=== PATIENT | male | born 1950 | race Caucasian/White ===

== ENCOUNTER 2024-05-07 08:10 | Day surgery (SDC) | payer MEDICARE, OTHER, SELFPAY ==
[2024-04-30 08:32] VITALS: BMI 40.0
[2024-05-07] VITALS (12 sets, daily range): BP systolic 117–178; BP diastolic 60–92; PULSE 46–69; RESP 10–20; TEMP 36–36.7; O2SAT 94–100; BMI 40.0
--- NOTE | 2024-05-07 | DI.RAD.S_ITS ---
PROCEDURE: XR PELVIS 1-2V INDICATIONS: INTEROP RIGHT HIP TECHNIQUE: Intra-operative view of the pelvis and hip acquired. COMPARISON: None. FINDINGS: Bones: A single intraoperative film of the right hip demonstrates that a total right hip arthroplasty is being performed with no radiographic evidence of complications. IMPRESSION: Unremarkable intraoperative film during total right hip arthroplasty. Dictated by: Flaco Neal M.D. on 05/07/2024 at 15:23 Approved by: Flaco Neal M.D. on 05/07/2024 at 15:24
--- NOTE | 2024-05-07 06:00 | DI.RAD.S_ITS ---
PROCEDURE: XR HIP W PEL IF DONE RT 2V INDICATIONS: CHILANGO TECHNIQUE: AP pelvis and lateral view of the hip acquired. COMPARISON: None. FINDINGS: Bones: Patient is status post right hip arthroplasty, with hardware components in expected positions. The hip joint appears congruent. The visualized bony structures appear intact. Soft tissues: Overlying postoperative changes are noted. No suspicious soft tissue densities. IMPRESSION: Expected post-operative appearance of a hip arthroplasty. Dictated by: Cosme Tolbert M.D. on 05/07/2024 at 16:26 Approved by: Cosme Tolbert M.D. on 05/07/2024 at 16:27
[2024-05-07] MEDS: VANCOMYCIN 1,000 MG/200 ML PIGGYBACK 200 MG IV (09:19)
[2024-05-07] MEDS: LACTATED RINGERS 1,000 ML 42 ML IV (09:26)
--- NOTE | 2024-05-07 12:12 | PM.PREOP ---
Pre-operative Note Interval Note History & Physical reviewed/Exam performed by Physician: Yes Changes to H&P: No
--- NOTE | 2024-05-07 12:54 | P.OP_ITS ---
Operative Date/Time/Diagnoses Date of procedure: 05/07/24 Time of procedure: 13:00 Pre-op diagnosis: Right hip OA Post-op diagnosis: same Procedure & Clinicians Procedure: Right total hip arthroplasty posterior approach Same procedure as scheduled: Yes Indications: The patient has had progressively worsening right hip pain with radiographic changes consistent with arthritis. Non-operative management has failed and the patient has requested total hip replacement. The risks, benefits and alternatives to surgery were discussed with the patient prior to proceeding. Risks discussed included, but were not limited to, failure to relieve pain, leg length discrepancy, dislocation, stiffness, infection, nerve damage, deep venous thrombosis, pulmonary embolism, stroke, coma, heart attack, permanent paralysis and , as well as the potential need for eventual revision of the prosthetic. Surgeon: Ann-Marie Tai Furniture Assembler: Carlos Mishra Anesthesia Type: General and Spinal Operative Notes Findings: Severe right hip OA, adequate stability, adequate bone Closure Type: primary Specimen(s): none sent Prosthetic devices, grafts, tissues, transplants, or devices: Tai and nephew 58 R3, 20 degree lipped poly liner,one 6.5 mm screw, polar stem standard offset size 4, 40 by +0 cobalt chrome head Estimated Blood Loss (mL): 250 Blood products transfused: none Procedure in detail: The patient was seen in the pre-operative area, where the patient identified the right hip as the operative site and this was marked with my initials. The patient received pre-operative antibiotics and was taken to the operating room and placed on the operative table in the left lateral decubitus position after satisfactory anesthesia. A night time nanny out was performed. The right leg was prepared from the ankle to the iliac crest with ChloroPrep in the usual fashion and draped through sterile drapes. A PA was used during the procedure and was essential for intraoperative retraction safe implantation of the components. The hip was approached through an approximately 20 cm incision centered over the greater trochanter and curving gently posteriorly as it went proximally. This was carried sharply to the fascia jenny, which was divided and retracted with a self retaining retractor. The trochanteric bursa was excised with care being taken to avoid the sciatic nerve, which was identified and protected throughout the case. The short external rotators were incised and the capsulomuscular flap was raised and tagged for later repair. The hip was dislocated, and a femoral neck osteotomy performed approximately 15 mm above the lesser trochanter. Retractors were placed around the femur. The canal was opened with a box cutting osteotome, followed by a T handled reamer and a lateralizing reamer. The chili pepper broach was then used, followed by sequential broaching until there was good stability of the broach in the femur. Retractors were placed to expose the acetabulum. The labrum and central soft tissues were removed. Reaming was performed initially going up in 2 mm increments, then 1 mm increments until good bite was obtained with an odd sized reamer. The cup 1 mm larger than the last reamer was then inserted using the appropriate anteversion guides. It was further stabilized with a screw. A trial neutral liner was placed. The broach was placed in the canal. A trial head and neck were then placed and the hip relocated and checked for leg length and stability. An intraoperative film confirmed the component position and no evidence of fracture. The patient was stable in the position of sleep, of squatting, and could be put through a range of motion with 45 degrees internal rotation without dislocation. With a neutral poly liner and a standard offset his x-rays showed good position of the components but there was less than optimum high flexion stability. There was no specific significant areas of impingement but a small amount of additional bone was resected off of the anterior aspect of the acetabular rim. In addition we did a trial with a lateralized liner which really did not provided additional significant stability and we did a trial with a lip liner placing the lip of the liner more inferior posterior inferior. The lip liner provided additional stability. At 90 degrees flexion, internal rotation to 70? was possible before dislocation. This was felt to be satisfactory and the appropriate components were opened, and the trials were removed. The acetabular liner was impacted into position. The final stem was then impacted into the prepared femoral canal. A brief Betadine soak was performed while trialing with head options. The hip was meticulously irrigated with normal saline. Finally the femoral head was impacted onto the stem. The acetabulum was cleared of all material and the hip relocated one final time. The capsulomuscular flap was then repaired to the greater trochanter though an awl hole using the tag sutures. The short external rotators were repaired with a nonabsorbable suture. The fascia jenny was closed with Vicryl. The subcutaneous layer was closed with barbed sutures and SteriStrips. An Aquacel Ag dressing was applied and the patient was taken to recovery having tolerated the procedure well. Complications: none Post-operative Condition: stable Disposition: Acute Care Plan for aftercare: The patient will be maintained on a standard total hip replacement protocol with weight bearing as tolerated and posterior hip precautions. The patient will receive Aspirin and sequential compression devices for DVT prophylaxis. The patient will be discharged home when safe for the home environment.
[2024-05-07] MEDS: TRANEXAMIC ACID 1,000 MG VIAL 1000 MG INJ ×2 (13:23→15:07)
[2024-05-07] MEDS: CEFAZOLIN 2 GM/100 ML PREMIX 100 ML IV (13:40)
[2024-05-07] MEDS: BUPIVACAINE LIPOSOME 266 MG/20 ML VIAL INJ (13:44)
[2024-05-07] MEDS: BUPIVACAINE 0.25% (PF) 60 ML, EPINEPHrine 0.3 MG INJ (13:45)
--- NOTE | 2024-05-07 13:50 | SUR.OPER ---
Lateral on padded OR bed. Gel axillary roll. Arms secured on padded armboard with pillow supporting top arm. Padded hip positioner braces x4 - anterior and posterior chest and pelvis. Additional gel pad used anterior pelvis. Gel pad under bottom leg from knee to foot and secured with tape over sheet.
[2024-05-07] MEDS: ACETAMINOPHEN 325 MG TABLET 975 MG PO (16:01)
[2024-05-07] MEDS: BENZOCAINE/MENTHOL 1 LOZ PKT 1 EACH PO (16:03)
--- NOTE | 2024-05-07 16:30 | SUR.PHASEI ---
Pt transferred to 215 with 2 bags including CPAP.
[2024-05-07] MEDS: LACTATED RINGERS 1,000 ML 100 ML IV (17:21)
[2024-05-07] MEDS: OXYCODONE IR 5 MG TABLET PO ×3 (18:26→23:03)
[2024-05-07] MEDS: ATORVASTATIN 20 MG TABLET 80 MG PO (20:55)
[2024-05-07] MEDS: METOPROLOL IR 25 MG TABLET 12.5 MG PO (20:55)
[2024-05-07] MEDS: DOCUSATE 100 MG CAPSULE PO (20:55)
[2024-05-07] MEDS: CEFAZOLIN VIAL 3 GM in SODIUM CHLORIDE 0.9% 100 ML IV (21:31)
[2024-05-08] VITALS: BP 130/75; PULSE 73; RESP 16; TEMP 37.4; O2SAT 94
--- NOTE | 2024-05-08 00:25 | PC.NURSE ---
pt resting in bed comfortably. a&o x4. vss. respirations even and unlabored on room air with O2 sats of 96%. lungs cta. abdomen soft and nontender with active bowel sounds in all 4 quads. reported feeling some slight nausea earlier, but has since subsided and does not want any anti-nausea medication. right hip surgical incision with WONG dressing CDI. green light flashing. cms intact with good pedal pulses. complaining of 5/10 pain in right hip. ice packs applied and prn oxycodone 5mg given. uses urinal independently at the bedside. urine strong-smelling and dark jose l in color. denies any burning and urinary urgency/frequency. iv site in right hand asymptomatic and intact. LR running at 100 mls/hr. scds applied. bed in lowest position with call light within reach.
[2024-05-08] MEDS: OXYCODONE IR 5 MG TABLET PO ×4 (03:06→17:39)
[2024-05-08 04:00] VITALS: BP 121/74; PULSE 71; RESP 20; TEMP 37.4; O2SAT 97
[2024-05-08] MEDS: CEFAZOLIN VIAL 3 GM in SODIUM CHLORIDE 0.9% 100 ML IV (04:23)
[2024-05-08 05:26] LABS: Hematocrit 45.6 % (41-53); Hemoglobin 15.6 g/dL (13.5-17.5)
--- NOTE | 2024-05-08 06:50 | P.DS_ITS ---
History of Present Illness History of Present Illness Date Patient Seen: 05/08/24 Time Patient Seen: 06:50 Chief complaint: Right Total Hip Arthroplasty 05/07 Narrative: Operative Date/Time/Diagnoses Date of procedure: 05/07/24 Time of procedure: 13:00 Pre-op diagnosis: Right hip OA Post-op diagnosis: same Procedure & Clinicians Procedure: Right total hip arthroplasty posterior approach Same procedure as scheduled: Yes Indications: The patient has had progressively worsening right hip pain with radiographic changes consistent with arthritis. Non-operative management has failed and the patient has requested total hip replacement. The risks, benefits and alternatives to surgery were discussed with the patient prior to proceeding. Risks discussed included, but were not limited to, failure to relieve pain, leg length discrepancy, dislocation, stiffness, infection, nerve damage, deep venous thrombosis, pulmonary embolism, stroke, coma, heart attack, permanent paralysis and , as well as the potential need for eventual revision of the prosthetic. Surgeon: Ann-Marie Tai Product Management Analyst: Carlos Mishra Anesthesia Type: General and Spinal Operative Notes Findings: Severe right hip OA, adequate stability, adequate bone Closure Type: primary Specimen(s): none sent Prosthetic devices, grafts, tissues, transplants, or devices: Tai and nephew 58 R3, 20 degree lipped poly liner,one 6.5 mm screw, polar stem standard offset size 4, 40 by +0 cobalt chrome head Estimated Blood Loss (mL): 250 Blood products transfused: none Discharge Providers Provider Discharge Date: 05/08/24 Primary care physician: Rogers Fraser Consults: 05/07/24 06:00 Consult to Anesthesiology Routine Comment: Consulting Provider: Anesthesiologist Reason for consultation: Regional block for post operative pain control Has provider been notified: No 05/07/24 16:29 Consult to Discharge Planning Routine Comment: Consult to Occupational Therapy Evaluate & Treat Comment: Physician Instructions: Evaluate and treat Consult to Physical Therapy Evaluate & Treat Comment: Physician Instructions: post op CHILANGO protocol 05/07/24 17:15 Consult to Dietitian, Adult Routine Comment: Reason For Exam: intended weight loss for surgery Discharge provider: Aishwarya Shi PA-C Summary Hospital Course Discharge Diagnosis: Right hip osteoarthritis, s/p right total hip arthroplasty Hospital Course: Mr Castro's hospital course was unremarkable. On the morning of POD# 1, he was uncomfortable but wanted to go home. He was eating and voiding without difficulty and his pain was well-controlled with oral medication. he had not yet been OOB. Exam Vital Signs (past 8 hours): - 05/08/24 00:00 05/08/24 04:00 Temperature 99.3 F 99.4 F Pulse Rate 73 71 Respiratory Rate 16 20 Blood Pressure 130/75 121/74 Pulse Oximetry 94 97 Oxygen Flow Rate 0 0 Oxygen Delivery Method Room Air Oxygen Flow Rate 0 Narrative Exam Narrative: 3/5 hip flexors, quadriceps, hamstrings; 5/5 PF, DF, EHL on right. Sensation to light touch intact throughout RLE, calf soft and compressible. WONG dressing functioning. Objective Labs 05/08/24 04:35 Labs: Laboratory Results - last 24 hr 05/08/24 04:35 Hgb 15.6 Hct 45.6 PFSH Medical History (Updated 04/30/24 @ 09:27 by Sana Goetz RN) CAD (coronary artery disease) CAITLYN on CPAP Neuropathy Cancer of left kidney (2006) BMI 40.0-44.9, adult (04/2024) HTN (hypertension) Surgical History (Updated 04/30/24 @ 09:27 by Sana Goetz RN) History of tonsillectomy History of repair of hiatal hernia History of left nephrectomy (2006) Hx of heart artery stent Social History household members: spouse Smoking Status: Former smoker alcohol intake: current Discharge Assessment & Plan Assessment and Plan Assessment: Right hip osteoarthritis, s/p right total hip arthroplasty Plan of Treatment: Discharge home after PT, ASA 81mg BID x 6 weeks for VTE prophylaxis, outpt PT, f/u in office in 2 weeks as scheduled, multimodal pain control. Discharge Plan Discharge Plan Patient Disposition: Home Provider Discharge Comment: Pt has postop meds at home. Increase ASA to BID. Discharge orders & Medications Discharge Orders: Discharge (Order); Ordered 05/08/24 Ordered By: Aishwarya Shi Prescriptions: Continued atorvastatin 80 mg tablet 80 mg PO QPM allopurinol 100 mg tablet 100 mg PO QAM aspirin 81 mg Tablet,Delayed Release (Dr/Ec) 81 mg PO DAILY lisinopril 5 mg tablet 5 mg DAILY metoprolol tartrate 25 mg tablet 12.5 mg PO BID acetaminophen [Tylenol Extra Strength] 500 mg Tablet 1,000 mg PO BID Follow up/Referrals: Rogers Fraser [Primary Care Provider] - Ann-Marie Tai MD [Physician] - 05/17/24 9:00 am Diet/Activity/Treatments Diet: Diet as Tolerated Activity: Weightbearing as tolerated. Posterior hip precautions. Cold/Heat Therapy: Ice to hip as needed for pain. Skin/Wound/Dressing Care Report to your healthcare provider any signs of infection, such as:: chills, fever, night sweats, unusual drainage and unusual redness Dressing: May shower. Leave dressing in place until follow up in office. Batteries will in 5-7 days, at which point you can cut off the battery pack and dispose of it, but keep the dressing on. No bathing or otherwise soaking incision. Call the office if the dressing becomes saturated inside. Visit Report/Discharge Packet Instructions: DI for Hip Replacement, DI for Prescription Opioid Use Stand Alone Forms: Patient Portal/API, Surgery Discharge Discharge Data Primary Care Provider: Rogers Fraser Attending Provider: Ann-Marie Tai Quality VTE Deep Vein Thrombosis/Pulmonary Embolism Present on Admission: No
[2024-05-08 08:00] VITALS: BP 121/68; PULSE 63; RESP 15; TEMP 37.5; O2SAT 98
[2024-05-08 08:26] VITALS: BP 121/68; PULSE 63
[2024-05-08] MEDS: DOCUSATE 100 MG CAPSULE PO ×2 (08:26→20:38)
[2024-05-08] MEDS: lisinopriL 5 MG TABLET PO (08:26)
[2024-05-08] MEDS: METOPROLOL IR 25 MG TABLET 12.5 MG PO ×2 (08:26→20:40)
[2024-05-08] MEDS: ACETAMINOPHEN 325 MG TABLET 650 MG PO ×2 (08:27→17:39)
[2024-05-08] MEDS: allopurinoL 100 MG TABLET PO (08:28)
--- NOTE | 2024-05-08 09:25 | PT.IIE ---
Current Diagnoses Unilateral primary osteoarthritis, right hip (05/07/24) Surgery Performed Operation Date: 05/07/24 10:45 Actual Procedures p Total Hip Arthroplasty(Right) - Ann-Marie Tai MD Surgical History (Last Updated 04/30/24 @ 09:27 by Sana Goetz, RN) History of left nephrectomy (2006) History of repair of hiatal hernia History of tonsillectomy Hx of heart artery stent Medical History (Last Updated 04/30/24 @ 09:27 by Sana Goetz, RN) BMI 40.0-44.9, adult (04/2024) CAD (coronary artery disease) Cancer of left kidney (2006) HTN (hypertension) Neuropathy CAITLYN on CPAP Physical Therapy Inpatient Evaluation/Re-Eval M1 PT/OT-IP Prior Functional Status Start: 05/08/24 12:42 Freq: NEEDED Status: Active Protocol: Document 05/08/24 09:25 AB (Rec: 05/08/24 12:58 AB [id number]) Medical Review Prior Functional Status Medical History Reviewed Yes Communication able to make needs known Mobility and Gait pt staed that he was independent with all mobilities and ambulation without AD but occasionally uses a SPC Social History Household Members spouse Living Arrangements House Number of Floors (Floors) Two Floors Number of Stairs To Enter/Railing? pt stays on main level of the house has 6 steps wide bilateral rails to enter but can only hold on to 1 rail at a time Home Environment High Toilet,Walk in Shower Home Equipment Front Wheel Walker,Straight Cane,Shower Seat with Backrest ,Hand Held Shower Additional Social History Comment pt has a toilet safety frame M2 PT-IP Current Condition Start: 05/08/24 12:42 Freq: NEEDED Status: Active Protocol: Document 05/08/24 09:25 AB (Rec: 05/08/24 12:58 AB [id number]) Physical Therapy Current Condition Current Condition Evaluation Date 05/08/24 Treatment Diagnosis s/p R CHILANGO posterior; difficulty in walking Onset Date 05/07/24 M3 PT-IP Subjective Start: 05/08/24 12:42 Freq: NEEDED Status: Active Protocol: Document 05/08/24 09:25 AB (Rec: 05/08/24 12:58 AB [id number]) Subjective Physical Therapy Visit Type Type Initial Evaluation Visit Start Time 09:25 Visit Stop Time 10:25 Number of ANDROID SOFTWARE ENGINEER Visits 0 Physical Therapy Visit Comments Patient Comments agreeable to do PT Therapy Pain Assessment Pain When Pain Assessed At Rest Pain Present Pain Present Pain Reported Location right hip Intensity 4 Scale Used Numeric (0 - 10) Pain Management Techniques Apply Cold,Distraction, Modification of Treatment,Re- positioning,Timing of Activity with Medications M4 PT-IP Mobility and Gait Start: 05/08/24 12:42 Freq: NEEDED Status: Active Protocol: Document 05/08/24 09:25 AB (Rec: 05/08/24 12:58 AB [id number]) PT-Bed Mobility Assessment Supine to Sit Supine to Sit Maximum Assistance,1 Person Assistance,2 Person Assistance PT-Transfer Assessment Sit to and From Stand Sit to and from Stand Maximum Assistance,1 Person Assistance,Use of Upper Extremities Equipment Transfer Assistive Device Gait Belt,Front Wheeled Walker Orthotic/Prosthetic Devices or Brace: No Transfers Transfer Destination Chair Transfer Technique ambulated Transfer Ability Level of Assist Moderate Assistance,1 Person Assistance,Use of Upper Extremities Comments Mobility Comments pt supine in bed and agreeable to do PT. obtained PLOF and home setup from pt. post-op folder provided and reviewed contents. educated pt on R hip posterior precautions. spouse arrived and also educated on pt's posterior hip precautions. BP in supine: 121/75. pt completed supine to sit max A x 1-2 and max cues. pt needed 3 attempts to be able to sit up. max A for scooting to EOB. BP checked: 114/83. pt sat for a ~ 2 more minutes and BP rechecked: 116 /69. pt completed sit to stand max A and max cues for precautions. ambulated ~ 10 ft using fWW mod to max A and max cues for R quads activation. pt c/o feeling lightheadedness. sat on chair . BP checked: 99/59. pt rested and BP rechecked: 114/ 55. positioned pt on the chair. call light and table placed within reach. informed pt and spouse regarding pt's mobility level and may need to do caregiver training but at this time, pt is not ready for cargiver training due to decrease in BP during activity. nurse aware . Gait Assessment Gait Gait Assistance Required: Moderate Assistance,Maximum Assistance Distance (Feet) 10 Able to Maintain Weight Bearing Status Yes During Gait Assistive Devices Assistive Device Gait Belt,Front Wheeled Walker Orthotic/Prosthetic Devices or Brace: No Gait Deviations General Gait Pattern Antalgic,Decreased Stride Length,Decreased Feet Clearance Factors Limiting Gait Function Factors Limiting Gait Function Decreased Activity Tolerance, Decreased Strength,Limited Range of Motion,Pain,Poor Balance,Poor Safety Awareness PT-Balance Assessment Sitting Balance and Reactions Static Sitting Balance Ability Normal Dynamic Sitting Balance Ability Good Standing Balance and Reactions Static Standing Balance Ability Poor Dynamic Standing Balance Ability Poor Device Used FWW M5 PT-IP Objective Assessments Start: 05/08/24 12:42 Freq: NEEDED Status: Active Protocol: Document 05/08/24 09:25 AB (Rec: 05/08/24 12:58 AB [id number]) Orientation Orientation/Cognition Level of Alertness Alert Orientation Name,Situation Language Function Ability No Deficits Noted Safety Awareness Decreased Safety Awareness Memory Description Short Term Impaired Gross Range of Motion Lower Extremity ROM Assessment Within Functional Limits Strength Lower Extremity Strength Assessment Right Impaired Hip 3-/5 Knee 3+/5 Coordination Assessment Gross Coordination Gross Coordination WNL Sensation Assessment Sensation Gross Sensation WNL Muscle Tone Muscle Tone WNL Yes M6 PT-IP Treatment Start: 05/08/24 12:42 Freq: NEEDED Status: Active Protocol: Document 05/08/24 09:25 AB (Rec: 05/08/24 12:58 AB [id number]) Physical Therapy Treatment Exercises Exercises Heel Slides Education Education Provided Precautions,Weight Bearing Status,Post-Op Packet,Safety M7 PT-IP Assessment and Plan Start: 05/08/24 12:42 Freq: NEEDED Status: Active Protocol: Document 05/08/24 09:25 AB (Rec: 05/08/24 12:58 AB [id number]) PT Summary Assessment and Plan Potential Rehabilitation Potential Fair Status of Condition at Evaluation Evolving Summary Impairments Pain,ROM,Strength,Balance, Coordination,Sensation,Tone, Cognition,Bed Mobility, Transfers,Gait,Activity Tolerance Assessment Summary pt is a 73 y/o M s/p R CHILANGO posterior approach POD 1. pt with R hip posterior precautions and is WBAT. pt requiring max A with all mobilities and max cues for safety. pt lives with spouse and caregiver training will be conducted when appropriate. d/c plan depending on progress but at this time, pt may require SNF rehab. Goals Bed Mobility Goal Minimal Assistance Transfer Goal Minimal Assistance,Front Wheeled Walker Gait Goal Minimal Assistance,Front Wheel Walker Gait Distance 75 Other Goals improve bed mobility, transfers, ambulation using FWW ~ 150 ft SBA up/down 6 steps 1 rail + SPC SBA Days to Meet Goals 10 Frequency of Treatment Frequency Of Treatment Twice a Day Treatment Plan Physical Therapy Treatment Plan Bed Mobility Training,Transfer Training,Gait Training, Therapeutic Exercise,Balance Retraining,Post Op Education, Discharge Planning,Hot or Cold Pack,Neuromuscular Re-ed, Coordination Retraining,Manual Therapy Precautions Posterior Hip Precautions No Hip Flexion > 90 degrees Weight Bearing Status Weight Bearing Status Weight Bear as Tolerated Allowed Weight Bearing Amount (enter % RLE WBAT or #) (%) Recommendations To Nursing Amount of Assist Needed 2 Person Assist Discharge Recommendations PT Discharge Recommendations Home with 30/01 Assist Available,Home Health,SNF Rehab,Home vs SNF Transportation Needs at Discharge Private Vehicle,Wheelchair/ Cabulance
--- NOTE | 2024-05-08 10:58 | CM.DANOTE ---
Initial DCP Assessment Visit Note Reviewed EMR and team rounds for status updates. Met with pt and spouse at bedside to introduce self and role, pt was found to be resting in the recliner, alert/oriented, and able to discuss his plan/preference for home d/c. Pt resides modified independently with the use of a cane in his own home w/spouse in Monday. Spouse will transport once he's medically stable for d/c, anticipated for 05/09/24. Payor: Medicare Attending: Dr. Ann-Marie Tai Pt is a 73 year-old M post-op day 1 from a R-total hip arthroplasty surgery. He has a hx of worsening R-hip pain consistent with arthritis, and the pain has become limiting in his ability to do his ADL's. Conservative efforts have not had lasting benefits, including a cortisone injection on 12/01/23, which only helped reduce the pain for about 4-weeks. 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 He's also been working at losing weight, and has been able to bring his BMI down to 40 so far. Today in getting out of bed for the first time with PT, he became orthostatic and was not able to complete stair training. Plan is home tomorrow if he is able to meet his d/c milestones with PT, and has no medical issues preventing his discharge. Discharge Planning/Care Management Advanced directive, confirm from FAMILY Start: 05/07/24 17:16 Freq: Q24H Status: Active Protocol: Document 05/07/24 23:59 BR (Rec: 05/07/24 23:59 BR [id number]) Advance Directive, confirm on record Time 23:59 Person contacted Pt Copy received No CM Discharge Assessment Start: 05/08/24 10:55 Freq: Status: Active Protocol: Document 05/08/24 10:56 DPL (Rec: 05/08/24 10:58 DPL [id number]) Discharge Planning Assessment Assigned Stull Hewer DAIJA Gomez Advance Directives? Yes Advance Directives on File No History Provided By Patient,Significant Other, Medical Record Has Patient been admitted in last 30 No days? Prior Living Arrangements House Household Members spouse Type of transporation used prior to Drives own vehicle admit Independent with ADL's No: modified independent w/use of a cane. Is patient alert and oriented? Yes Caregiver for Another No DME Already Rented / Owned FWW / Walker,Cane Patient/Family Preference OP PT Therapy Discharge Plan Home Community Services Physical Therapy Transportation Arrangement Spouse Referrals Initiated None needed Whiteboard Updated in Patient Room with Yes name and ext. # of Stull Hewer Review Status In Process Please Provide Date Initial DC 05/08/24 Assessment Was Performed Pre-Anesthesia Assessment Start: 04/30/24 08:32 Freq: Status: Active Protocol: Document 04/30/24 08:32 LB (Rec: 04/30/24 09:23 LB [id number]) Pre-Anesthesia Assessment PAC Comment 04/30/24 Phone assessment. Preferred Name Maldonado Patient Information Reviewed Via Phone Assessment Assessment Completed With Patient Diagnostic Results BMP/CMP,CBC,EKG Comment 02/28/24 outside results Primary Care Provider Rogers Fraser Specialist Seen Orthopedist Primary Language Icelandic Preferred Language Icelandic Hand Cigar Making Supervisor Required No Height 187.96 cm Weight 141.521 kg Body Mass Index (BMI) 40.0 Hearing Ability Normal Visual Assist Glasses Dentition Type Teeth, Natural Present Barriers to Learning None Other Aids No Hx Anesthesia Reactions No Hx Family Anesthesia Reaction No Hx Malignant Hyperthermia No Hx Blood Transfusions No Anesthesia Review Requested No Exercise Physiologist No alcohol intake current alcohol intake frequency a few times a month Smoking Status Former smoker how long ago did patient quit smoking quit 35 years ago. Substance Use Type does not use Pain Present Pain Reported Comment right hip. Musculoskeletal Symptoms Difficulty Walking,Joint Pain, Numbness,Radiating Pain into Limb,Tingling History of Falling (Recent or History of No ) Patient is completely paralyzed or No completely immobile Prosthesis or Orthotic Device Cane,Front Wheel Walker Mental Status Oriented to own ability Comment Will bring walker. Is patient on oxygen? No Does patient have FISHER/SOB No Hx Sleep Apnea Yes CPAP/BIPAP use prescribed and used routinely Will Bring CPAP/BIPAP DOS Yes Currently Taking a Beta Belinda Yes: Metoprolol 12.5mg BID Can You Climb a Flight of Stairs Without Yes SOB Hx Chest Pain No Hx SOB No Hx Syncope or Dizziness No Anti-Coagulant Therapy Yes: Aspirin 81mg daily - advised to hold 1 week preop by surgeon. Has a Marble Cutter Operator Yes Cardiac Testing No Hx Pacemaker/ICD No Cardiac Clearance Received Not Applicable Bladder Pattern Frequency,Nocturia Urinary Catheter Present No Hx Urinary Self Catheterization No Diabetes No HgbA1C 5.5 Date 02/28/24 Hx Drug Resistant Organism No Presence of External or Internal Medical Yes: Cardiac stent, hernia Devices mesh. Have you had any close contact with No someone diagnosed with COVID-19? Are you experiencing any of these No symptoms symptoms? Marital Status Lives With spouse Current Living Arrangements House Number of Floors (Floors) Two Floors Number of Stairs To Enter/Railing? 5 stairs with railing to enter , living on main floor. Support System Spouse Does the Patient Have Assistance After Yes Surgery Patient Discharge Plan Description Return Home Additional comment advised same day surgery. Feels Safe in Current Environment Yes Do you have thoughts of harming yourself None or others? Do You Have Any Spiritual Beliefs That No May Affect Your HC Choices? Do You Have Any Cultural Practices That No May Affect Your HC Choices? Emergency Contact Name Jessica Tai - Emergency Contact Advance Directives? Yes Advance Directives on File No Requested Patient Bring Advanced Yes Directives DOS PAC Instructions Assistance for 24 hours post- op,Bring CPAP/BIPAP,Durable medical equipment,Medications to take/avoid,Nasal antibiotic ,No ETOH/petroleum product on skin DOS,NPO,Post-op transportation,Pre-surgical wash,Sensory aids,Sturdy shoes /comfortable clothes,Do not bring valuables and remove jewelry
--- NOTE | 2024-05-08 11:43 | OT.IP.EVAL ---
Current Diagnoses Unilateral primary osteoarthritis, right hip (05/07/24) Surgery Performed Operation Date: 05/07/24 10:45 Actual Procedures p Total Hip Arthroplasty(Right) - Ann-Marie Tai MD Past Medical History (Last Updated 04/30/24 @ 09:27 by Sana Goetz, RN) BMI 40.0-44.9, adult (04/2024) CAD (coronary artery disease) Cancer of left kidney (2006) HTN (hypertension) Neuropathy CIATLYN on CPAP Surgical History (Last Updated 04/30/24 @ 09:27 by Sana Goetz, RN) History of left nephrectomy (2006) History of repair of hiatal hernia History of tonsillectomy Hx of heart artery stent Occupational Therapy Inpatient Evaluation/Re-Eval M2 OT-IP Current Condition Start: 05/08/24 12:37 Freq: Status: Active Protocol: Document 05/08/24 12:37 [facility] (Rec: 05/08/24 12:55 [facility] [id number]) Occupational Therapy Current Condition Current Condition Evaluation Date 05/08/24 Treatment Diagnosis S/P R CHILANGO posterior approach Diagnosis Onset Date 05/07/24 Post Operative Precautions Posterior Hip Precautions No Hip Flexion > 90 degrees,No Hip Internal Rotation,No Hip Adduction M3 OT- IP Subjective and Pain Start: 05/08/24 12:37 Freq: Status: Active Protocol: Document 05/08/24 12:37 [facility] (Rec: 05/08/24 12:55 [facility] [id number]) OT- Subjective Occupational Therapy Visit Type Type Initial Evaluation Visit Start Time 11:10 Visit Stop Time 11:43 Occupational Therapy Visit Comments Patient Comments Pt agreed to work with OT and pt's in the room. Patient/Caregiver Goals TO go home. OT Pain Assessment Pain When Pain Assessed At Rest Pain Present Pain Present Pain Reported Location right hip Intensity 3 Scale Used Numeric (0 - 10) M4 OT- IP ADL's Start: 05/08/24 12:37 Freq: Status: Active Protocol: Document 05/08/24 12:37 [facility] (Rec: 05/08/24 12:55 [facility] [id number]) OT MMJ-Tdow-Oplsena General Evaluation Self-Feeding Ability Independent OT ADL-Grooming General Evaluation Grooming Ability Standby Assistance Areas Needing Assistance Retrieving/Set-up of Grooming Items Comments OT Grooming Comments While seated. OT ADL-Oral Care General Eval Oral Care Ability Independent Comments Oral Care Comments While seated. OT ADL-Dressing General Eval Lower Body Dressing Ability Minimal Assistance Areas Needing Assistance Socks Assistive Devices Dressing Assistive Devices Snuff Packing Machine Operator,Sock Aid Comments OT Dressing Comments Able to practice use of cold mill supervisor and sock aid for LB dressing needs. Educated to dress the RLE first and take out last. OT ADL-Toileting Comments OT Toileting Comments Spoke out use of toilet paper aid, wipes and urinal. In addition standing to wipe to best follow his hip precautions. OT ADL-Bathing Comments OT Bathing Comments Pt states will just sponge off at home. Suggested to use the FWW to help get into the shower with assist and to be sure the shower chair is high even for the pt to use. M5 OT- IP IADL's Start: 05/08/24 12:37 Freq: Status: Active Protocol: Document 05/08/24 12:37 [facility] (Rec: 05/08/24 12:55 [facility] [id number]) OT-Instrumental Activities of Daily Living Home Safety Awareness Awareness of Need for Assistance at Home Good Awareness Ability to Problem Solve Emergency Able to Problem Solve Situations Home Safety Comments Pt's to be home to assist pt. Medication Management Medication Management No Deficits Identified Money Management Money Management No Deficits Identified Meal Preparation Meal Preparation Caregiver Provides Assist Electronic Calibration Technician Electronic Calibration Technician Caregiver Provides Assist M6 OT- IP Functional Cognition Start: 05/08/24 12:37 Freq: Status: Active Protocol: Document 05/08/24 12:37 [facility] (Rec: 05/08/24 12:55 [facility] [id number]) Cognitive Factors Limiting Selfcare Function Cognitive Ability Level of Alertness Alert Patient Orientation Name,Age,Birthday,Month,Date, Year,Day of Week,Place, Situation Attention Span Ability Capable of Focused Attention, Capable of Sustained Attention Ability to Follow Commands Able to Follow One Step Commands Memory Description No Deficits Noted Safety Awareness Decreased Recall of Precautions Cognitive Comments Cognitive Assessment Comments Pt able to states 2/3 hip precautions. Pt able to follow commands for ADL and mobility needs. OT- Vision and Hearing OT- Hearing Assessment OT- Hearing Assessment WFL OT- Vision Assessment Vision Assessment Comments Pt wears glasses for TV and driving needs. M7 OT- IP Mobility and Balance Start: 05/08/24 12:37 Freq: Status: Active Protocol: Document 05/08/24 12:37 [facility] (Rec: 05/08/24 12:55 [facility] [id number]) OT-Transfer Assessment Sit to and From Stand Sit to and from Stand Moderate Assistance Comments Mobility Comments Pt MODA to come to stand to the FWW and MODA to help lower and assist to slide his RLE forwards before sitting down. OT- Balance Assessment Sitting Balance and Reactions Static Sitting Balance Ability Normal Dynamic Sitting Balance Ability Good Standing Balance and Reactions Static Standing Balance Ability Fair M8 OT- IP Objective Assessments Start: 05/08/24 12:37 Freq: Status: Active Protocol: Document 05/08/24 12:37 [facility] (Rec: 05/08/24 12:55 [facility] [id number]) OT Gross Range of Motion Upper Extremity Range of Motion Assessment Within Functional Limits OT Strength Comments Strength Comments WFL for needs. M9 OT- IP Assessment and Plan Start: 05/08/24 12:37 Freq: Status: Active Protocol: Document 05/08/24 12:37 [facility] (Rec: 05/08/24 12:55 [facility] [id number]) OT Summary Assessment and Plan Potential Rehabilitation Potential Excellent Analytic Complexity at Evaluation Low Summary OT Impairments Pain,Range of Motion,Strength, Balance,Functional Mobility, Dressing,Toileting,Bathing, Toilet Transfers,Shower Transfers,Activity Tolerance Progress Towards Goals Slow Progress due to Pain,Slow Progress due to Medical Issues,Slow Progress due to Activity Tolerance Assessment Summary Pt low complexity and main barriers are pain, steps, and having difficulty to move his RLE. Pt has a very supportive to assist him at home and already has outpt PT set-up. Pt to go home when medically stable. Goals Dressing Goal Independent,Long Handled Shoe Horn,Snuff Packing Machine Operator,Sock Aid Toileting Goal Standby Assistance,Toilet Paper Aid Bathing Goal Minimal Assistance Toilet Transfer Goal Standby Assistance Shower Transfer Goal Contact Guard Assistance Days to Meet Goals 7 Frequency of Treatment Other frequency 5x/week Treatment Plan OT Treatment Plan ADL Training,Functional Mobility,Patient/Family Education,Discharge Planning Discharge Recommendations OT Discharge Recommendations Home with 30/01 Assist Available,Outpatient PT Transportation Needs at Discharge Private Vehicle
--- NOTE | 2024-05-08 13:55 | PT.IPTN ---
Current Diagnoses Unilateral primary osteoarthritis, right hip (05/07/24) Surgery Performed Operation Date: 05/07/24 10:45 Actual Procedures p Total Hip Arthroplasty(Right) - Ann-Marie Tai MD Physical Therapy Treatment Note M2 PT-IP Current Condition Start: 05/08/24 12:42 Freq: NEEDED Status: Active Protocol: Document 05/08/24 09:25 AB (Rec: 05/08/24 12:58 AB [id number]) Physical Therapy Current Condition Current Condition Evaluation Date 05/08/24 Treatment Diagnosis s/p R CHILANGO posterior; difficulty in walking Onset Date 05/07/24 M3 PT-IP Subjective Start: 05/08/24 12:42 Freq: NEEDED Status: Active Protocol: Document 05/08/24 13:55 AB (Rec: 05/08/24 17:31 AB [id number]) Subjective Physical Therapy Visit Type Type Treatment Note Visit Start Time 13:55 Visit Stop Time 14:45 Number of BREW HOUSE SUPERVISOR Visits 0 Physical Therapy Visit Comments Patient Comments agreeable to do PT Therapy Pain Assessment Pain When Pain Assessed At Rest Pain Present Pain Present Pain Reported Location right hip Scale Used pain scale not stated Pain Management Techniques Apply Cold,Distraction, Modification of Treatment,Re- positioning,Timing of Activity with Medications M4 PT-IP Mobility and Gait Start: 05/08/24 12:42 Freq: NEEDED Status: Active Protocol: Document 05/08/24 13:55 AB (Rec: 05/08/24 17:31 AB [id number]) PT-Transfer Assessment Sit to and From Stand Sit to and from Stand Moderate Assistance,1 Person Assistance,Use of Upper Extremities Equipment Transfer Assistive Device Gait Belt,Front Wheeled Walker Orthotic/Prosthetic Devices or Brace: No Transfers Transfer Destination Chair Transfer Technique ambulated Transfer Ability Level of Assist Moderate Assistance,1 Person Assistance,Use of Upper Extremities Comments Mobility Comments pt sitting on the chair and spouse in room. BP sittin/55. reviewed posterior hip precautions and pt able to recall 2/3. pt completed sit to stand from chair mod A and max cues for precautions. pt ambulated ~20 ft using FWW mod A and max cues. pt sat back on chair. BP: 117/54. caregiver training initiated. educated spouse on how to use safety belt and how to assist pt. spouse was able to put safety belt on pt and assisted pt with sit to stand. ambulated pt in room mod A using FWW and max cues for precautions. pt continues to have difficulty moving and lifting RLE during ambulation and continues to require cues to maintain hip precautions. pt has 6 steps to enter the house and currently is not ready to safety complete stairs. pt stated that he can stay in another place ~ 400 ft away from the house and has only one step to enter. informed spouse to get a w/c for pt to use depending on his progress but may need one right now due to decrease activity tolerance and unable to do stair climbing. pt and spouse understood. pt also does not want to do bed mobility and stated that he will just sleep on his recliner. positioned pt on the chair. call light and table placed within reach. left pt with spouse in room. Gait Assessment Gait Gait Assistance Required: Moderate Assistance Distance (Feet) 20 Able to Maintain Weight Bearing Status Yes During Gait Assistive Devices Assistive Device Gait Belt,Front Wheeled Walker Orthotic/Prosthetic Devices or Brace: No Gait Deviations General Gait Pattern Antalgic,Decreased Stride Length,Decreased Feet Clearance Factors Limiting Gait Function Factors Limiting Gait Function Decreased Activity Tolerance, Difficulty Following Directions,Limited Range of Motion,Pain,Poor Balance,Poor Safety Awareness M5 PT-IP Objective Assessments Start: 05/08/24 12:42 Freq: NEEDED Status: Active Protocol: Document 05/08/24 09:25 AB (Rec: 05/08/24 12:58 AB [id number]) Orientation Orientation/Cognition Level of Alertness Alert Orientation Name,Situation Language Function Ability No Deficits Noted Safety Awareness Decreased Safety Awareness Memory Description Short Term Impaired Gross Range of Motion Lower Extremity ROM Assessment Within Functional Limits Strength Lower Extremity Strength Assessment Right Impaired Hip 3-/5 Knee 3+/5 Coordination Assessment Gross Coordination Gross Coordination WNL Sensation Assessment Sensation Gross Sensation WNL Muscle Tone Muscle Tone WNL Yes M6 PT-IP Treatment Start: 05/08/24 12:42 Freq: NEEDED Status: Active Protocol: Document 05/08/24 13:55 AB (Rec: 05/08/24 17:31 AB [id number]) Physical Therapy Treatment Education Education Provided Precautions,Safety M7 PT-IP Assessment and Plan Start: 05/08/24 12:42 Freq: NEEDED Status: Active Protocol: Document 05/08/24 13:55 AB (Rec: 05/08/24 17:31 AB [id number]) PT Summary Assessment and Plan Potential Rehabilitation Potential Fair Summary Impairments Pain,ROM,Strength,Balance, Coordination,Sensation,Tone, Cognition,Bed Mobility, Transfers,Gait,Activity Tolerance Progress Towards Goals Slow Progress due to Activity Tolerance,Slow Progress - Other Assessment Summary pt requiring mod A with trnasfers and ambulation using FWW but only able to walk 20 ft. pt stated that he needs to walk ~ 100 ft to enter the house and has 6 steps to get in. pt stated that he can stay in another place with just one step to get into. spouse still wants pt to be able to get into the house if possible. caregiver training initiated and spouse was able to assist pt with transfers and ambulation using fWW. will continue to assess progress. Goals Bed Mobility Goal Minimal Assistance Transfer Goal Minimal Assistance,Front Wheeled Walker Gait Goal Minimal Assistance,Front Wheel Walker Gait Distance 75 Other Goals improve bed mobility, transfers, ambulation using FWW ~ 150 ft SBA up/down 6 steps 1 rail + SPC SBA Days to Meet Goals 10 Frequency of Treatment Frequency Of Treatment Twice a Day Treatment Plan Physical Therapy Treatment Plan Bed Mobility Training,Transfer Training,Gait Training, Therapeutic Exercise,Balance Retraining,Post Op Education, Discharge Planning,Hot or Cold Pack,Neuromuscular Re-ed, Coordination Retraining,Manual Therapy Precautions Posterior Hip Precautions No Hip Flexion > 90 degrees Weight Bearing Status Weight Bearing Status Weight Bear as Tolerated Allowed Weight Bearing Amount (enter % RLE WBAT or #) (%) Recommendations To Nursing Amount of Assist Needed 2 Person Assist Discharge Recommendations PT Discharge Recommendations Home with / Assist Available,Home Health,SNF Rehab,Home vs SNF Transportation Needs at Discharge Private Vehicle,Wheelchair/ Cabulance
[2024-05-08 19:46] VITALS: BP 101/60; PULSE 71; RESP 16; TEMP 37.4; O2SAT 94
[2024-05-08] MEDS: ATORVASTATIN 20 MG TABLET 80 MG PO (20:38)
[2024-05-08] MEDS: OXYCODONE IR 10 MG TABLET PO (20:40)
[2024-05-09] MEDS: OXYCODONE IR 10 MG TABLET PO ×3 (00:03→06:42)
[2024-05-09 08:00] VITALS: BP 143/78; PULSE 81; RESP 16; TEMP 37.7; O2SAT 96
[2024-05-09 08:52] VITALS: BP 143/78; PULSE 81
[2024-05-09] MEDS: DOCUSATE 100 MG CAPSULE PO (08:52)
[2024-05-09] MEDS: lisinopriL 5 MG TABLET PO (08:52)
[2024-05-09] MEDS: allopurinoL 100 MG TABLET PO (08:52)
[2024-05-09] MEDS: ONDANSETRON 4 MG ODT PO (08:52)
[2024-05-09] MEDS: METOPROLOL IR 25 MG TABLET 12.5 MG PO (08:54)
--- NOTE | 2024-05-09 09:25 | PT-IP ANOTE ---
Pt declines therapy, reports feeling nauseated. Pt also states that he will not be returning to his home with x6 steps at this time.
--- NOTE | 2024-05-09 11:06 | OT.IP.TRT ---
Current Diagnoses Unilateral primary osteoarthritis, right hip (05/07/24) Surgery Performed Operation Date: 05/07/24 10:45 Actual Procedures p Total Hip Arthroplasty(Right) - Ann-Marie Tai MD Occupational Therapy Treatment Note M2 OT-IP Current Condition Start: 05/08/24 12:37 Freq: Status: Active Protocol: Document 05/08/24 12:37 [facility] (Rec: 05/08/24 12:55 [facility] [id number]) Occupational Therapy Current Condition Current Condition Evaluation Date 05/08/24 Treatment Diagnosis S/P R CHILANGO posterior approach Diagnosis Onset Date 05/07/24 Post Operative Precautions Posterior Hip Precautions No Hip Flexion > 90 degrees,No Hip Internal Rotation,No Hip Adduction M3 OT- IP Subjective and Pain Start: 05/08/24 12:37 Freq: Status: Active Protocol: Document 05/09/24 11:00 [facility] (Rec: 05/09/24 11:06 [facility] [id number]) OT- Subjective Occupational Therapy Visit Type Type Treatment Note Visit Start Time 10:35 Visit Stop Time 11:00 Occupational Therapy Visit Comments Patient Comments Pt agreed to get up and do caregiver training with his . Patient/Caregiver Goals To go home. OT Pain Assessment Pain When Pain Assessed At Rest Pain Present Pain Present Pain Reported Location right hip Intensity 2 Scale Used Numeric (0 - 10) M4 OT- IP ADL's Start: 05/08/24 12:37 Freq: Status: Active Protocol: Document 05/08/24 12:37 [facility] (Rec: 05/08/24 12:55 [facility] [id number]) OT [id number] General Evaluation Self-Feeding Ability Independent OT ADL-Grooming General Evaluation Grooming Ability Standby Assistance Areas Needing Assistance Retrieving/Set-up of Grooming Items Comments OT Grooming Comments While seated. OT ADL-Oral Care General Eval Oral Care Ability Independent Comments Oral Care Comments While seated. OT ADL-Dressing General Eval Lower Body Dressing Ability Minimal Assistance Areas Needing Assistance Socks Assistive Devices Dressing Assistive Devices Environmental Test Technician,Sock Aid Comments OT Dressing Comments Able to practice use of middle school pe teacher and sock aid for LB dressing needs. Educated to dress the RLE first and take out last. OT ADL-Toileting Comments OT Toileting Comments Spoke out use of toilet paper aid, wipes and urinal. In addition standing to wipe to best follow his hip precautions. OT ADL-Bathing Comments OT Bathing Comments Pt states will just sponge off at home. Suggested to use the FWW to help get into the shower with assist and to be sure the shower chair is high even for the pt to use. M5 OT- IP IADL's Start: 05/08/24 12:37 Freq: Status: Active Protocol: Document 05/08/24 12:37 [facility] (Rec: 05/08/24 12:55 [facility] [id number]) OT-Instrumental Activities of Daily Living Home Safety Awareness Awareness of Need for Assistance at Home Good Awareness Ability to Problem Solve Emergency Able to Problem Solve Situations Home Safety Comments Pt's to be home to assist pt. Medication Management Medication Management No Deficits Identified Money Management Money Management No Deficits Identified Meal Preparation Meal Preparation Caregiver Provides Assist Lending Activities Supervisor Lending Activities Supervisor Caregiver Provides Assist M6 OT- IP Functional Cognition Start: 05/08/24 12:37 Freq: Status: Active Protocol: Document 05/09/24 11:00 [facility] (Rec: 05/09/24 11:06 [facility] [id number]) Cognitive Factors Limiting Selfcare Function Cognitive Ability Level of Alertness Alert Patient Orientation Name,Age,Birthday,Month,Date, Year,Day of Week,Place, Situation Attention Span Ability Capable of Focused Attention, Capable of Sustained Attention Ability to Follow Commands Able to Follow One Step Commands Safety Awareness Decreased Recall of Precautions Cognitive Comments Cognitive Assessment Comments Pt able to recall 1/3 hip precautions and after education able to recall. M7 OT- IP Mobility and Balance Start: 05/08/24 12:37 Freq: Status: Active Protocol: Document 05/09/24 11:00 [facility] (Rec: 05/09/24 11:06 [facility] [id number]) OT-Transfer Assessment Sit to and From Stand Sit to and from Stand Minimal Assistance Transfers Transfer Ability Standby Assistance Technique Transfer Destination Chair Comments Mobility Comments Pt's able to chantelle/doff the gait belt and able to assist pt in the room with FWW . AUTO DRIVER able to do the step with pt. OT- Balance Assessment Sitting Balance and Reactions Static Sitting Balance Ability Normal Dynamic Sitting Balance Ability Good Standing Balance and Reactions Static Standing Balance Ability Good Dynamic Standing Balance Ability Fair Comments Other Balance Tests/Deviations/Treatment Pt moving much better todday : and actively able to move his RLE more. M8 OT- IP Objective Assessments Start: 05/08/24 12:37 Freq: Status: Active Protocol: Document 05/08/24 12:37 [facility] (Rec: 05/08/24 12:55 [facility] [id number]) OT Gross Range of Motion Upper Extremity Range of Motion Assessment Within Functional Limits OT Strength Comments Strength Comments WFL for needs. M9 OT- IP Assessment and Plan Start: 05/08/24 12:37 Freq: Status: Active Protocol: Document 05/09/24 11:00 [facility] (Rec: 05/09/24 11:06 [facility] [id number]) OT Summary Assessment and Plan Potential Rehabilitation Potential Excellent Analytic Complexity at Evaluation Low Summary OT Impairments Pain,Range of Motion,Strength, Balance,Functional Mobility, Dressing,Toileting,Bathing, Toilet Transfers,Shower Transfers,Activity Tolerance Progress Towards Goals Progressing Toward Goals Assessment Summary Able to go over ADl and mobility needs with pt and his . Pt to go home with his to assist and have outpt PT. Pt to get a BSC. Goals Dressing Goal Independent,Long Handled Shoe Horn,Environmental Test Technician,Sock Aid Toileting Goal Standby Assistance,Toilet Paper Aid Bathing Goal Minimal Assistance Toilet Transfer Goal Independent Shower Transfer Goal Standby Assistance Days to Meet Goals 3 Frequency of Treatment Frequency Of Treatment Once a Day Treatment Plan OT Treatment Plan ADL Training,Functional Mobility,Patient/Family Education,Discharge Planning Discharge Recommendations OT Discharge Recommendations Home with 30/01 Assist Available,Outpatient PT Transportation Needs at Discharge Private Vehicle
--- NOTE | 2024-05-09 11:27 | CM.DPC ---
DCP Cont. Reviewed EMR and team rounds for status updates. Pt's d/c was delayed yesterday due to becoming orthostatic when working with PT. Today he is doing much better, has been medically cleared for home d/c. He and his are planning to stay in a hotel for a few days before returning to [place] due to his difficulty with stairs, and he will need to climb 6-stairs when they do return to [place]. No further needs are identified at this time.
--- NOTE | 2024-05-09 12:09 | PT.IPTN ---
Current Diagnoses Unilateral primary osteoarthritis, right hip (05/07/24) Surgery Performed Operation Date: 05/07/24 10:45 Actual Procedures p Total Hip Arthroplasty(Right) - Ann-Marie Tai MD Physical Therapy Treatment Note M2 PT-IP Current Condition Start: 05/08/24 12:42 Freq: NEEDED Status: Active Protocol: Document 05/08/24 09:25 AB (Rec: 05/08/24 12:58 AB [id number]) Physical Therapy Current Condition Current Condition Evaluation Date 05/08/24 Treatment Diagnosis s/p R CHILANGO posterior; difficulty in walking Onset Date 05/07/24 M3 PT-IP Subjective Start: 05/08/24 12:42 Freq: NEEDED Status: Active Protocol: Document 05/09/24 11:44 ZF (Rec: 05/09/24 12:08 ZF [id number]) Subjective Physical Therapy Visit Type Type Treatment Note Visit Start Time 10:33 Visit Stop Time 10:53 Number of WIRE STRAIGHTENER Visits 1 Physical Therapy Visit Comments Patient Comments agreeable to do PT Therapy Pain Assessment Pain When Pain Assessed At Rest Pain Present Pain Present Pain Reported Location right hip Intensity 2 Scale Used Numeric (0 - 10) Pain Management Techniques Apply Cold,Distraction, Modification of Treatment,Re- positioning,Timing of Activity with Medications M4 PT-IP Mobility and Gait Start: 05/08/24 12:42 Freq: NEEDED Status: Active Protocol: Document 05/09/24 11:44 ZF (Rec: 05/09/24 12:08 ZF [id number]) PT-Transfer Assessment Sit to and From Stand Sit to and from Stand Contact Guard Assistance, Minimal Assistance Equipment Transfer Assistive Device Gait Belt,Front Wheeled Walker Orthotic/Prosthetic Devices or Brace: No Transfers Transfer Destination Chair Transfer Technique ambulated Transfer Ability Level of Assist Contact Guard Assistance,1 Person Assistance,Use of Upper Extremities Comments Mobility Comments Pt sitting in chair with present. Pt able to recall 3/3 hip precautions w/cueing. Caregiver training: donns gait belt and provides CGA for STS. Pt amb x40' w/CGA. Pt asc/teo x1 step w/CGA using 2ww to simulate DC environment . Pt returned to recliner, all needs met. Gait Assessment Gait Gait Assistance Required: Contact Guard Assist Distance (Feet) 40 Able to Maintain Weight Bearing Status Yes During Gait Assistive Devices Assistive Device Gait Belt,Front Wheeled Walker Orthotic/Prosthetic Devices or Brace: No Gait Deviations General Gait Pattern Antalgic,Decreased Stride Length,Decreased Feet Clearance Factors Limiting Gait Function Factors Limiting Gait Function Decreased Activity Tolerance, Limited Range of Motion,Pain, Poor Balance,Poor Safety Awareness PT-Balance Assessment Sitting Balance and Reactions Static Sitting Balance Ability Normal Dynamic Sitting Balance Ability Good M5 PT-IP Objective Assessments Start: 05/08/24 12:42 Freq: NEEDED Status: Active Protocol: Document 05/08/24 09:25 AB (Rec: 05/08/24 12:58 AB [id number]) Orientation Orientation/Cognition Level of Alertness Alert Orientation Name,Situation Language Function Ability No Deficits Noted Safety Awareness Decreased Safety Awareness Memory Description Short Term Impaired Gross Range of Motion Lower Extremity ROM Assessment Within Functional Limits Strength Lower Extremity Strength Assessment Right Impaired Hip 3-/5 Knee 3+/5 Coordination Assessment Gross Coordination Gross Coordination WNL Sensation Assessment Sensation Gross Sensation WNL Muscle Tone Muscle Tone WNL Yes M6 PT-IP Treatment Start: 05/08/24 12:42 Freq: NEEDED Status: Active Protocol: Document 05/09/24 11:44 [facility] (Rec: 05/09/24 12:08 ZF [id number]) Physical Therapy Treatment Education Education Provided Precautions,Safety M7 PT-IP Assessment and Plan Start: 05/08/24 12:42 Freq: NEEDED Status: Active Protocol: Document 05/09/24 11:44 ZF (Rec: 05/09/24 12:08 ZF [id number]) PT Summary Assessment and Plan Potential Rehabilitation Potential Fair Summary Impairments Pain,ROM,Strength,Balance, Coordination,Sensation,Tone, Cognition,Bed Mobility, Transfers,Gait,Activity Tolerance Progress Towards Goals Slow Progress due to Activity Tolerance,Slow Progress - Other Assessment Summary Pt requires CGA for transfers and amb, including asc/teo x1 step. Pt reports that upon DC he will be staying in and [place] on their property that only has one step to enter. There is a recliner for pt to sleep in. Pt reports feeling better today, and his mobility is much improved. Pt and report feeling good about DC home today. Goals Bed Mobility Goal Minimal Assistance Transfer Goal Minimal Assistance,Front Wheeled Walker Gait Goal Minimal Assistance,Front Wheel Walker Gait Distance 75 Other Goals improve bed mobility, transfers, ambulation using FWW ~ 150 ft SBA up/down 6 steps 1 rail + SPC SBA Days to Meet Goals 10 Frequency of Treatment Frequency Of Treatment Twice a Day Treatment Plan Physical Therapy Treatment Plan Bed Mobility Training,Transfer Training,Gait Training, Therapeutic Exercise,Balance Retraining,Post Op Education, Discharge Planning,Hot or Cold Pack,Neuromuscular Re-ed, Coordination Retraining,Manual Therapy Precautions Posterior Hip Precautions No Hip Flexion > 90 degrees Weight Bearing Status Weight Bearing Status Weight Bear as Tolerated Allowed Weight Bearing Amount (enter % RLE WBAT or #) (%) Recommendations To Nursing Amount of Assist Needed 1 Person Assist Discharge Recommendations PT Discharge Recommendations Home with 30/01 Assist Available,Home Health,SNF Rehab,Home vs SNF Transportation Needs at Discharge Private Vehicle,Wheelchair/ Cabulance
[2024-05-09] MEDS: OXYCODONE IR 5 MG TABLET PO (13:05)
[2024-05-09] MEDS: ACETAMINOPHEN 325 MG TABLET 650 MG PO (13:05)
--- NOTE | 2024-05-09 13:40 | PC.NURSE ---
D/c instructions reviewed with Pt, including no driving while taking narcotics. Encouraged to increase fluid intake to prevent constipation. IV removed. Pt exited with SHIP UNLOADER and spouse via w/c to private vehicle.
== END 2024-05-09 13:20 | disposition home or self-care (01) ==
LOC: OR 08:12 → AC 08:14
PROVIDERS: PCP Student in an Organized Health Care Education/Training Program; Referring Provider Orthopaedic Surgery; Visit Provider Orthopaedic Surgery
PROC: 0SR90JZ Replacement of Right Hip Joint with Synthetic Substitute, Open Approach (ICD-10-PCS; CPT 27130; principal; 2024-05-07 10:45)
DX: M16.11 Unilateral primary osteoarthritis, right hip (principal)
CPT/HCPCS: 27130; 36415; 72170; 73502; 85014; 85018; 97116; 97162; 97165; 97530; 97535; C1776; C9290; J0171; J0690; J2405; J2704; J3010

== ENCOUNTER → 2025-04-17 10:41 | Outpatient (CLI) | payer MEDICARE, OTHER, SELFPAY ==
[2024-05-07 17:10] VITALS: BMI 40.0
== END ==
LOC: PHYS 10:43
PROVIDERS: Family Provider Student in an Organized Health Care Education/Training Program; PCP Student in an Organized Health Care Education/Training Program; Referring Provider Orthopaedic Surgery; Visit Provider Orthopaedic Surgery
DX: G56.22 Lesion of ulnar nerve, left upper limb (principal)
CPT/HCPCS: 95886; 95910